=== PATIENT | male | born 1990 | race Caucasian/White ===

== ENCOUNTER 2021-01-08 21:27 | Emergency (ER) | payer MEDICAID ==
[~2021-01-08] VITALS: Ht 190.5 cm; Wt 79.4 kg
[~2021-01-08 21:27] MED LIST: IBUPROFEN600 MG ORAL; NKM
[2021-01-08 21:35] VITALS: BP 157/98
--- NOTE | 2021-01-08 21:35 | Emergency Room Report ---
History of Present Illness General Chief Complaint: Hand laceration Source: Patient Present Illness HPI Disclaimer: Please note that this report is being documented using [employer] technology. This can lead to erroneous entry secondary to incorrect interpretation by the dictating instrument. HPI: 30-year-old [id number] male presents with hand laceration. States he was cleaning dishes accidentally dropped when it broke and lacerated the palm and the right middle finger. Able to flex and extend digits that is painful. States he might feel something over the palm at the base of the right index finger. Denies direct trauma otherwise. Denies numbness or tingling. Applied pressure and cleaned wound prior to arrival. Wound currently hemostatic. PMH: Reviewed PSH: Reviewed Allergies: Reviewed Social Hx: Reviewed Allergies: Coded Allergies: No Known Allergies (Unverified , 07/28/14) Review of Systems All Other Systems: negative except mentioned in HPI Physical Exam General: Awake and alert, no acute distress HEENT: NC/AT. EOMI. Resp: Normal work of breathing Skin: There is approximately 1/2 cm linear superficial laceration over the PIPJ extending from the middle pad out radially to the edge of the PIPJ of the right middle finger. Very superficial. No tendon involvement. Full range of motion. Distal capillary refill preserved. Also a superficial flap at the base of the right index finger approximately 1 cm in length total. No active bleeding. No signs of debris or foreign body. MSK: Normal tone and bulk. Moving all extremities. No obvious deformity. Able to flex and extend all digits. Neuro: Awake and alert. Mentating appropriately Procedures Laceration/Wound Repair Laceration/Wound Repair : Consent: Verbal Wound Location: upper extremity Wound's Depth, Shape: superficial, linear, flap Wound Explored: clean Betadine Prep?: Yes Anesthesia: 1% Lidocaine Volume Anesthetic (ccs): 3 Wound Debrided: None Suture Size/Type: 6:0, proline Number of Sutures: 9 Layer Closure?: No Sterile Dressing Applied?: Yes Patient Tolerated: Well Complications: None Medical Decision Making Diagnostic Impression: Primary Impression: Laceration ER Course Patient presents with 2 superficial lacerations over the right hand from broken dish. X-ray obtained does not show obvious foreign body. No evidence of tendon, nerve or significant vascular involvement. Wounds were cleaned irrigate d and approximated with simple interrupted sutures; 9 in total. To be removed in 5 to 7 days. Sterile dressing applied. Started on Keflex for prophylaxis. Instructed to return with signs of infection or other new or worsening symptoms. Other X-Ray Diagnostic Results Other X-Ray Diagnostic Results : X-Ray ordered: Right hand # of Views/Limited Vs Complete: 3 View Indication: Pain Interpretation: no dislocation, other - No foreign body Impression: No acute disease Electronically Signed by: Electronically signed by Dr. Tyler Krishnamurthy MD Disposition: HOME, SELF-CARE Condition: Stable Scripts Cephalexin* (KEFLEX*) 500 Mg Capsule 500 MG ORAL EVERY 6 HOURS for 7 Days, #28 CAP Prov: Tyler Krishnamurthy MD 01/08/21 Tyler Krishnamurthy MD Jan 08, 2021 21:35
--- NOTE | 2021-01-08 21:37 | NUR ---
ED Nurse Note: Patient walked into ED c/o laceration on his right hand, patient presents with 2 skin tears primarily on his right palm and on the bottom of his left index finger. patient rates his pain a 5/10 pain. states that he was washing dishes earlier and one of them broke. patient placed on gurney. will wait for further orders
[2021-01-08] MEDS: Lidocaine 1% Plain 30 ml INJ ONE (21:43)
[2021-01-08] MEDS ORDERED: CEPHALEXIN500 MG ORAL (22:18)
[2021-01-08] MEDS: Bacitracin Oint UD TOPIC ONE (22:24)
[2021-01-08 22:45] VITALS: BP 142/92
--- NOTE | 2021-01-08 22:45 | NUR ---
ER DISCHARGE NOTE: Patient is cleared to be discharged per ERMD, pt is aox4, on room air, with stable vital signs. pt was given dc and prescription instructions, pt was able to verbalize understanding, pt id band removed without complications. pt is able to ambulate with steady gait. pt took all belongings.
--- NOTE | 2021-01-09 15:09 | Diagnostic Imaging Report ---
Indication: Right hand pain status post injury Technique: 3 views of the right hand Comparison: None FINDINGS/IMPRESSION: Bony mineralization within normal limits. No acute fracture or dislocation is identified. No radiopaque foreign body.
== END 2021-01-08 22:59 | disposition home or self-care (01) ==
LOC: EMR 21:33
DX: S61.212A Laceration without foreign body of right middle finger without damage to nail, initial encounter (principal); W25.XXXA Contact with sharp glass, initial encounter; Y93.G1 Activity, food preparation and clean up; Y92.010 Kitchen of single-family (private) house as the place of occurrence of the external cause
CPT/HCPCS: 12001; 73130; J2001; Z7502; 99283